=== PATIENT | female | born 1990 | race Hispanic/Latino ===

== ENCOUNTER 2023-07-17 20:12 | Emergency (ER) | payer OTHER ==
[~2023-07-17] VITALS: Ht 157.5 cm; Wt 70.3 kg
[2023-07-17 20:35] LABS: RAPID GROUP A STREP negative (NEGATIVE)
[2023-07-17 20:41] LABS: SARS-CoV-2, RNA, NAAT NEGATIVE SARS CoV-2 (NEGATIVE)
[2023-07-17 20:45] LABS: INFLUENZA TYPE A Negative For Type A (NEGATIVE); INFLUENZA TYPE B Negative For Type B (NEGATIVE)
[2023-07-17 20:55] VITALS: TEMP 101.1
[2023-07-17] MEDS ORDERED: ACETAMINOPHEN 500 MG TABLET PO ONE (21:00)
[2023-07-17 21:12] LABS: APPEARANCE,URINE CLOUDY (CLEAR); BILIRUBIN,URINE NEGATIVE (NEGATIVE); COLOR,URINE YELLOW (YELLOW); GLUCOSE, URINE (UA) NEGATIVE (NEGATIVE); KETONES,URINE 60 mg/dL (NEGATIVE); LEUKOCYTE ESTERASE ,URINE 250 Leu/uL (NEGATIVE); NITRATE,URINE 2+ (NEGATIVE); OCCULT BLOOD,URINE MODERATE (NEGATIVE); PROTEIN,URINE 10 mg/dL (NEGATIVE); UROBILINOGEN,URINE 0.2 mg/dL (0.2-1.0)
[2023-07-17 21:16] LABS: HCG,QUALITATIVE URINE NEGATIVE (NEGATIVE)
[2023-07-17 21:19] LABS: ADD UA MICROSCOPIC YES
[2023-07-17] MEDS ORDERED: NITR100C4 PO (21:25)
[2023-07-17] MEDS ORDERED: FLUT16H NASAL (21:25)
[2023-07-17] MEDS ORDERED: BENZ200C53 PO (21:25)
[2023-07-17] MEDS ORDERED: BROM118S48 PO (21:25)
[2023-07-17] MEDS ORDERED: LORA10TA7 PO (21:25)
[2023-07-17] MEDS ORDERED: DEXAMETHASONE SOD PHOSPHATE 4 MG/ML 1ML VIAL IM SCH (21:30)
[2023-07-17] MEDS ORDERED: LORATADINE 10 MG TABLET PO SCH (21:30)
[2023-07-17] MEDS ORDERED: CEFTRIAXONE 1G VIAL IM ONE (21:30)
[2023-07-17 21:36] LABS: BACTERIA,URINE FEW /HPF (None Seen); MUCUS,URINE RARE LPF (None Seen); SQUAMOUS EPITHELIAL CELL,UR RARE /HPF (0-2); UNCLASSIFIED CRYSTAL 1 /HPF (None Seen); WBC,URINE 51-100 /HPF (0-1)
[2023-07-17 22:27] VITALS: BP 114/62; PULSE 98; RESP 18; O2SAT 97
== END 2023-07-17 22:57 | disposition home or self-care (01) ==
LOC: EDH 20:12
DX: N39.0 Urinary tract infection, site not specified (principal); J00 Acute nasopharyngitis [common cold]; Z20.822 Contact with and (suspected) exposure to COVID-19; Z98.890 Other specified postprocedural states
CPT/HCPCS: 99284; 87635; 87077; 87088; 87186; 87880; 87804 ×2; 81001; 81025; 96372 ×2; J1100; C9803; J0696